=== PATIENT | female | born 1960 | race Caucasian/White ===

== ENCOUNTER 2017-10-01 06:46 | Outpatient (CLI) | payer OTHER ==
[~2017-10-01 06:46] MED LIST: CALC-793 PO; CALC600T12 PO; CYAN-19 PO; ESTR1VAG VG; IODI150T PO; MAGN400C PO; METHYLFOLATE PO; NITR100C6 PO; PYRI50TA10 PO; SYN0.075T PO; [UNRECOGNIZED DRUG - OTHER] PO
[2017-10-01 07:16] LABS: BASOPHILS % (AUTO) 0.4 % (0-1); EOSINOPHILS # (AUTO) 0.1 X10'3 (0-0.9); EOSINOPHILS % (AUTO) 1.7 % (0-6); HEMOGLOBIN 14.4 g/dl (12.0-16.0); LYMPHOCYTES # (AUTO) 2.2 X10'3 (1.1-4.8); LYMPHOCYTES % (AUTO) 28.9 % (21-51); MEAN CORPUSCULAR HEMOGLOBIN 30.4 PG (27.0-31.0); MEAN CORPUSCULAR HGB CONC 35.1 % (33.0-36.5); MEAN CORPUSCULAR VOLUME 86.6 FL (78-98); MEAN PLATELET VOLUME 7.7 FL (7.4-10.4); MONOCYTES # (AUTO) 0.4 X10'3 (0-0.9); MONOCYTES % (AUTO) 4.9 % (2-12); NEUTROPHILS # (AUTO) 4.9 X10'3 (1.8-7.7); NEUTROPHILS % (AUTO) 64.1 % (42-75); PLATELET COUNT 269 X10'3 (140-440); RED BLOOD COUNT 4.74 X10'6 (4.20-5.60); RED CELL DISTRIBUTION WIDTH 13.3 % (11.5-14.5); WHITE BLOOD COUNT 7.7 X10'3 (4.5-11.0)
[2017-10-01 07:39] LABS: ALANINE AMINOTRANSFERASE 28 U/L (12-78); ALBUMIN 4.1 G/DL (3.4-5.0); ALBUMIN/GLOBULIN RATIO 1.2 (1.1-1.5); ALKALINE PHOSPHATASE 69 IU/L (46-116); ANION GAP 9 (8-16); ASPARTATE AMINO TRANSFERASE 14 U/L (10-37); BILIRUBIN,TOTAL 0.4 MG/DL (0.1-1.0); BLOOD UREA NITROGEN 21 MG/DL (7-18); BUN/CREATININE RATIO 22.3 (6.6-38.0); CALCIUM 9.5 MG/DL (8.5-10.1); CHLORIDE 103 MMOL/L (99-107); CHOL/HDL RATIO 2.7 (0.00-4.99); CHOLESTEROL 241 MG/DL (0-200); CREATININE 0.94 MG/DL (0.40-0.90); GLUCOSE 95 MG/DL (70-104); HDL CHOLESTEROL 88 MG/DL (35-60); LDL CHOLESTEROL 130 MG/DL (50-100); POTASSIUM 4.3 MMOL/L (3.5-5.1); SODIUM 141 MMOL/L (135-145); TOTAL CARBON DIOXIDE 28.7 MMOL/L (24-32); TOTAL PROTEIN 7.6 G/DL (6.4-8.2); TRIGLYCERIDES 39 MG/DL (20-135); eGFR 61 ML/MIN
== END 2017-10-01 23:59 | disposition home or self-care (01) ==
LOC: LAB 06:46
PROVIDERS: ATTEND Nurse Practitioner Family
DX: Z00.01 Encounter for general adult medical examination with abnormal findings (principal); Z13.220 Encounter for screening for lipoid disorders; K80.50 Calculus of bile duct without cholangitis or cholecystitis without obstruction; M25.50 Pain in unspecified joint; N39.0 Urinary tract infection, site not specified
CPT/HCPCS: 36415; 80053; 80061; 84443; 85025

== ENCOUNTER 2017-12-31 11:24 | Outpatient (CLI) | payer OTHER | END 2017-12-31 23:59 | disposition home or self-care (01) | LOC: LAB 11:24 | PROVIDERS: ATTEND Otolaryngology | DX: Z13.228 Encounter for screening for other metabolic disorders (principal); Z00.00 Encounter for general adult medical examination without abnormal findings | CPT/HCPCS: 36415 ==

== ENCOUNTER 2018-02-16 06:27 | Day surgery (SDC) | payer OTHER ==
[2018-02-11 13:02] LABS: BASOPHILS # (AUTO) 0.1 X10'3 (0-0.2); BASOPHILS % (AUTO) 1.2 % (0-1); EOSINOPHILS # (AUTO) 0.1 X10'3 (0-0.9); EOSINOPHILS % (AUTO) 1.6 % (0-6); LYMPHOCYTES # (AUTO) 2.8 X10'3 (1.1-4.8); LYMPHOCYTES % (AUTO) 30.5 % (21-51); MEAN CORPUSCULAR HEMOGLOBIN 30.1 PG (27.0-31.0); MEAN CORPUSCULAR HGB CONC 34.3 % (33.0-36.5); MEAN CORPUSCULAR VOLUME 87.7 FL (78-98); MEAN PLATELET VOLUME 8.6 FL (7.4-10.4); MONOCYTES # (AUTO) 0.6 X10'3 (0-0.9); MONOCYTES % (AUTO) 6.7 % (2-12); NEUTROPHILS # (AUTO) 5.5 X10'3 (1.8-7.7); PRE OP HEMOGLOBIN 13.4 g/dL (12.0-16.0); PRE OP PLATELET COUNT 258 X10'3 (140-440); RED BLOOD COUNT 4.45 X10'6 (4.20-5.60)
[2018-02-11 13:16] LABS: ALBUMIN/GLOBULIN RATIO 1.2 (1.1-1.5); ALKALINE PHOSPHATASE 79 IU/L (46-116); BLOOD UREA NITROGEN 22 MG/DL (7-18); BUN/CREATININE RATIO 27.8 (6.6-38.0); CALCIUM 9.2 MG/DL (8.5-10.1); CHLORIDE 101 MMOL/L (99-107); CREATININE 0.79 MG/DL (0.40-0.90); PRE OP ALT 19 U/L (30-65); PRE OP ANION GAP 8 (8-16); PRE OP AST 14 U/L (10-37); PRE OP BILIRUB, TOTAL 0.3 MG/DL (0.0-1.0); PRE OP GLUCOSE 98 MG/DL (70-104); PRE OP POTASSIUM 3.8 MMOL/L (3.4-5.1); PRE OP SODIUM 138 MMOL/L (135-145); TOTAL CARBON DIOXIDE 29.1 MMOL/L (24-32); TOTAL PROTEIN 7.3 G/DL (6.4-8.2); eGFR 75 ML/MIN
[~2018-02-16] VITALS: Ht 160 cm; Wt 65.6 kg
[2018-02-16] VITALS (13 sets, daily range): BP systolic 113–159; BP diastolic 63–102
[~2018-02-16 06:27] MED LIST changes: -CALC-793 PO; +CHOL2000 PO; -IODI150T PO; +LEVO125T PO; +LIDOcaine 1% (10mg/ml) 2ml vial ONE; -MAGN400C PO; -PYRI50TA10 PO; -SYN0.075T PO; +[UNRECOGNIZED DRUG - CODE] PO; +ceFOXitin 2 GM ADDvantage bag 100 ML IV ONE; +famotidine 20mg tablet PO ONE; +ringers solution, lacted 1,000 ML IV SCH
[2018-02-16] MEDS ORDERED: BUPIVAcaine/PF 2.5mg/ml (0.25%) 10ml vial ONE (07:14)
[2018-02-16] MEDS ORDERED: LIDOcaine 2% (20mg/ml) 5ml vial ONE (08:12)
[2018-02-16] MEDS ORDERED: fentaNYL/PF 50MCG/1 ML 2ML syringe ONE ×2 (08:12→08:56)
[2018-02-16] MEDS ORDERED: propofol inj 20 ML IV ONE (08:12)
[2018-02-16] MEDS ORDERED: midazolam 2 mg/2 ml injection ONE (08:12)
[2018-02-16] MEDS ORDERED: rocuronium 10mg/ml inj IV ONE (08:12)
[2018-02-16] MEDS ORDERED: ringers solution, lacted 1,000 ML IV SCH (08:38)
[2018-02-16] MEDS ORDERED: meperidine/PF 25mg/ml syringe IV PRN ×2 (08:40)
[2018-02-16] MEDS ORDERED: proCHLORperazine 10 MG/2 ml inj IV PRN (08:40)
[2018-02-16] MEDS ORDERED: ondansetron/PF 4mg/2ml inj IV PRN (08:40)
[2018-02-16] MEDS ORDERED: morphine 4 MG/ML inj SYRINge IV PRN ×2 (08:40)
[2018-02-16] MEDS ORDERED: dexamethasone sod phosphate 4mg/ml inj. ONE (08:45)
[2018-02-16] MEDS ORDERED: neostigmine methylsulfate 1 MG/ML 10ml vial ONE (08:57)
[2018-02-16] MEDS ORDERED: ondansetron/PF 4mg/2ml inj ONE (08:57)
[2018-02-16] MEDS ORDERED: glycopyrrolate 0.2mg/ml inj ONE (08:57)
[2018-02-16] MEDS ORDERED: ketorolac trometh. 30mg/ml inj. IV ONE (09:35)
[2018-02-16] MEDS: meperidine/PF 25mg/ml syringe IV PRN ×2 (09:39→09:44)
== END 2018-02-16 11:20 | disposition home or self-care (01) ==
LOC: PAS 06:27
PROVIDERS: ATTEND Surgery
DX: K80.10 Calculus of gallbladder with chronic cholecystitis without obstruction (principal); E03.9 Hypothyroidism, unspecified; M79.7 Fibromyalgia; F32.9 Major depressive disorder, single episode, unspecified; G89.29 Other chronic pain; M47.812 Spondylosis without myelopathy or radiculopathy, cervical region; Z98.82 Breast implant status; Z72.89 Other problems related to lifestyle; Z98.51 Tubal ligation status; Z88.2 Allergy status to sulfonamides; Z79.82 Long term (current) use of aspirin; Z86.69 Personal history of other diseases of the nervous system and sense organs; Z87.440 Personal history of urinary (tract) infections; Z79.899 Other long term (current) drug therapy; Z98.890 Other specified postprocedural states; Z83.3 Family history of diabetes mellitus; Z84.1 Family history of disorders of kidney and ureter; Z82.0 Family history of epilepsy and other diseases of the nervous system
CPT/HCPCS: 36415; 47562; 80053; 85025; 93005; J0694; J1100; J1885; J2001; J2175; J2250; J2405; J2704; J2710; J3010; J3490; J7120; A7000

== ENCOUNTER 2018-11-18 08:15 | Outpatient (CLI) | payer OTHER ==
[~2018-11-18 08:15] MED LIST changes: -LIDOcaine 1% (10mg/ml) 2ml vial ONE; -ceFOXitin 2 GM ADDvantage bag 100 ML IV ONE; -famotidine 20mg tablet PO ONE; -ringers solution, lacted 1,000 ML IV SCH
== END 2018-11-18 23:59 | disposition home or self-care (01) ==
LOC: VAS 08:15
PROVIDERS: ATTEND Radiology Diagnostic Radiology
DX: Z09 Encounter for follow-up examination after completed treatment for conditions other than malignant neoplasm (principal)
CPT/HCPCS: 93971

== ENCOUNTER 2018-11-18 08:21 | Outpatient (CLI) | payer OTHER ==
[2018-11-19 08:12] LABS: THYROXINE (T4) 7.3 ug/dL (4.5-12.0)
== END 2018-11-18 23:59 | disposition home or self-care (01) ==
LOC: LAB 08:21
PROVIDERS: ATTEND Otolaryngology
DX: E04.1 Nontoxic single thyroid nodule (principal)
CPT/HCPCS: 36415; 84436; 84443; 84479

== ENCOUNTER 2019-02-24 12:43 | Outpatient (CLI) | payer OTHER ==
[~2019-02-24 12:43] MED LIST changes: -CYAN-19 PO; +CYAN100019 PO
== END 2019-02-24 23:59 | disposition home or self-care (01) ==
LOC: RAD 12:43
PROVIDERS: ATTEND Family Medicine
DX: E04.2 Nontoxic multinodular goiter (principal); Z86.69 Personal history of other diseases of the nervous system and sense organs; Z72.89 Other problems related to lifestyle
CPT/HCPCS: 76536

== ENCOUNTER 2019-09-11 07:36 | Outpatient (CLI) | payer OTHER ==
[2019-09-11 09:06] LABS: BASOPHILS % (AUTO) 0.5 % (0-1); EOSINOPHILS # (AUTO) 0.1 X10'3 (0-0.9); EOSINOPHILS % (AUTO) 0.8 % (0-6); HEMOGLOBIN 13.8 g/dl (12.0-16.0); LYMPHOCYTES # (AUTO) 2.4 X10'3 (1.1-4.8); LYMPHOCYTES % (AUTO) 32.9 % (21-51); MEAN CORPUSCULAR HEMOGLOBIN 29.7 PG (27.0-31.0); MEAN CORPUSCULAR HGB CONC 34.5 g/dL (33.0-36.5); MEAN CORPUSCULAR VOLUME 85.9 FL (78-98); MEAN PLATELET VOLUME 8.3 FL (7.4-10.4); MONOCYTES # (AUTO) 0.5 X10'3 (0-0.9); MONOCYTES % (AUTO) 6.1 % (2-12); NEUTROPHILS # (AUTO) 4.4 X10'3 (1.8-7.7); NEUTROPHILS % (AUTO) 59.7 % (42-75); PLATELET COUNT 263 X10'3 (140-440); RED BLOOD COUNT 4.65 X10'6 (4.20-5.60); RED CELL DISTRIBUTION WIDTH 13.1 % (11.5-14.5); WHITE BLOOD COUNT 7.4 X10'3 (4.5-11.0)
[2019-09-11 09:29] LABS: ALANINE AMINOTRANSFERASE 18 U/L (12-78); ALBUMIN 4.1 G/DL (3.4-5.0); ALBUMIN/GLOBULIN RATIO 1.2 (1.1-1.5); ALKALINE PHOSPHATASE 69 IU/L (46-116); ANION GAP 6 (8-16); ASPARTATE AMINO TRANSFERASE 19 U/L (10-37); BILIRUBIN,TOTAL 0.5 MG/DL (0.1-1.0); BLOOD UREA NITROGEN 15 MG/DL (7-18); BUN/CREATININE RATIO 17.6 (6.6-38.0); CALCIUM 9.3 MG/DL (8.5-10.1); CHLORIDE 101 MMOL/L (99-107); CHOL/HDL RATIO 3.1 (0.00-4.99); CHOLESTEROL 184 MG/DL (0-200); CREATININE 0.85 MG/DL (0.40-0.90); GLUCOSE 92 MG/DL (70-104); HDL CHOLESTEROL 59 MG/DL (35-60); LDL CHOLESTEROL 110 MG/DL (50-100); POTASSIUM 3.9 MMOL/L (3.5-5.1); SODIUM 135 MMOL/L (135-145); TOTAL CARBON DIOXIDE 27.7 MMOL/L (24-32); TOTAL PROTEIN 7.4 G/DL (6.4-8.2); TRIGLYCERIDES 56 MG/DL (20-135); eGFR 68 ML/MIN
[2019-09-11 09:31] LABS: C-REACTIVE PROTEIN < 0.05 MG/DL (0.0-0.5)
[2019-09-11 09:44] LABS: RHEUM FACTOR QUAL REFLEX TITER NEGATIVE (Neg)
[2019-09-12 06:09] LABS: VITAMIN D, 25-HYDROXY 40.2 ng/mL (30.0-100.0)
[2019-09-12 08:11] LABS: SEX HORM BINDING GLOB, SERUM 83.1 nmol/L (17.3-125.0)
== END 2019-09-11 23:59 | disposition home or self-care (01) ==
LOC: LAB 07:36
PROVIDERS: ATTEND Family Medicine
DX: E03.9 Hypothyroidism, unspecified (principal); E04.1 Nontoxic single thyroid nodule; E55.9 Vitamin D deficiency, unspecified; G89.4 Chronic pain syndrome; M05.9 Rheumatoid arthritis with rheumatoid factor, unspecified; M25.473 Effusion, unspecified ankle
CPT/HCPCS: 36415; 80053; 80061; 82306; 82607; 82746; 83880; 84270; 84439; 84443; 84482; 85025; 85651; 86140; 86430

== ENCOUNTER 2019-12-28 08:04 | Outpatient (CLI) | payer BC ==
[~2019-12-28 08:04] MED LIST changes: -CALC600T12 PO; +CALC600T16 PO
== END 2019-12-28 23:59 | disposition home or self-care (01) ==
LOC: LAB 08:04
PROVIDERS: ATTEND Family Medicine
DX: G89.4 Chronic pain syndrome (principal); M25.571 Pain in right ankle and joints of right foot
CPT/HCPCS: 36415; 83520; 83735; 84255; 84630; 86617

== ENCOUNTER 2020-10-17 15:09 | Outpatient (CLI) | payer BC ==
[~2020-10-17 15:09] MED LIST changes: +CALC-1099 PO; -CALC600T16 PO
== END 2020-10-17 23:59 | disposition home or self-care (01) ==
LOC: RAD 15:09
PROVIDERS: ATTEND Family Medicine
DX: R93.89 Abnormal findings on diagnostic imaging of other specified body structures (principal)
CPT/HCPCS: 76536

== ENCOUNTER 2020-12-09 15:25 | Outpatient (CLI) | payer BC | END 2020-12-09 23:59 | disposition home or self-care (01) | LOC: RAD 15:25 | PROVIDERS: ATTEND Family Medicine | DX: M47.816 Spondylosis without myelopathy or radiculopathy, lumbar region (principal); M48.061 Spinal stenosis, lumbar region without neurogenic claudication | CPT/HCPCS: 72148 ==

== ENCOUNTER 2020-12-19 06:40 | Day surgery (SDC) | payer BC ==
[~2020-12-19] VITALS: Ht 160 cm; Wt 53.9 kg
[2020-12-19] VITALS (8 sets, daily range): BP systolic 114–143; BP diastolic 68–83
[2020-12-19] MEDS ORDERED: LORA10CA PO (07:17)
[2020-12-19] MEDS ORDERED: IBUP-24 PO (07:20)
== END 2020-12-19 10:20 | disposition home or self-care (01) ==
LOC: SSTAY O 06:40
PROVIDERS: ATTEND Radiology Vascular & Interventional Radiology
DX: E04.1 Nontoxic single thyroid nodule (principal); E03.9 Hypothyroidism, unspecified; E55.9 Vitamin D deficiency, unspecified; M12.9 Arthropathy, unspecified; Z88.2 Allergy status to sulfonamides; Z79.899 Other long term (current) drug therapy
CPT/HCPCS: 10005; 38505

== ENCOUNTER 2021-02-21 06:44 | Day surgery (SDC) | payer BC ==
[~2021-02-21] VITALS: Ht 160 cm; Wt 53.9 kg
[~2021-02-21 06:44] MED LIST changes: +IBUP-24 PO; +LORA10CA PO; -NITR100C6 PO; -[UNRECOGNIZED DRUG - CODE] PO
[2021-02-21] MEDS ORDERED: normal saline 1000ml 1,000 ML IV PRN (07:00)
[2021-02-21 07:39] VITALS: BP 125/68
[2021-02-21] MEDS ORDERED: normal saline 1000ml 1,000 ML IV SCH (09:20)
[2021-02-21 09:25] VITALS: BP 109/64
== END 2021-02-21 10:00 | disposition home or self-care (01) ==
LOC: SSTAY O 06:44
PROVIDERS: ATTEND Radiology Diagnostic Radiology
DX: E04.1 Nontoxic single thyroid nodule (principal); Z53.8 Procedure and treatment not carried out for other reasons; E03.9 Hypothyroidism, unspecified; E55.9 Vitamin D deficiency, unspecified; M12.9 Arthropathy, unspecified; Z88.2 Allergy status to sulfonamides; Z79.899 Other long term (current) drug therapy
CPT/HCPCS: 76536

== ENCOUNTER 2021-03-10 08:49 | Outpatient (CLI) | payer BC | END 2021-03-10 23:59 | disposition home or self-care (01) | LOC: RAD 08:49 | PROVIDERS: ATTEND Family Medicine | DX: E04.2 Nontoxic multinodular goiter (principal) | CPT/HCPCS: 76536 ==

== ENCOUNTER 2021-06-19 12:58 | Emergency (ER) | payer BC ==
[~2021-06-19] VITALS: Ht 160 cm; Wt 46.4 kg
[2021-06-19 13:13] VITALS: BP 126/66
== END 2021-06-19 17:46 | disposition left against medical advice (07) ==
LOC: ER 12:59
DX: R11.10 Vomiting, unspecified (principal); Z53.21 Procedure and treatment not carried out due to patient leaving prior to being seen by health care provider

== ENCOUNTER 2022-03-11 09:00 | Outpatient (CLI) | payer BC ==
[2022-03-11 10:01] LABS: BASOPHILS % (AUTO) 0.4 % (0-1); EOSINOPHILS # (AUTO) 0.1 X10'3 (0-0.9); HEMATOCRIT 39.7 % (35.0-45.0); HEMOGLOBIN 13.6 g/dl (12.0-16.0); LYMPHOCYTES # (AUTO) 2.1 X10'3 (1.1-4.8); LYMPHOCYTES % (AUTO) 30.3 % (21-51); MEAN CORPUSCULAR HEMOGLOBIN 29.9 PG (27.0-31.0); MEAN CORPUSCULAR HGB CONC 34.2 g/dL (33.0-36.5); MEAN CORPUSCULAR VOLUME 87.3 FL (78-98); MEAN PLATELET VOLUME 8.1 FL (7.4-10.4); MONOCYTES # (AUTO) 0.5 X10'3 (0-0.9); MONOCYTES % (AUTO) 7.1 % (2-12); NEUTROPHILS # (AUTO) 4.3 X10'3 (1.8-7.7); NEUTROPHILS % (AUTO) 61.2 % (42-75); PLATELET COUNT 264 X10'3 (140-440); RED BLOOD COUNT 4.54 X10'6 (4.20-5.60); RED CELL DISTRIBUTION WIDTH 13.1 % (11.5-14.5)
[2022-03-11 10:22] LABS: ALANINE AMINOTRANSFERASE 25 U/L (12-78); ALBUMIN 4.2 G/DL (3.4-5.0); ALBUMIN/GLOBULIN RATIO 1.2 (1.1-1.5); ALKALINE PHOSPHATASE 69 IU/L (46-116); ANION GAP 7 (8-16); ASPARTATE AMINO TRANSFERASE 33 U/L (10-37); BILIRUBIN,TOTAL 0.5 MG/DL (0.1-1.0); BLOOD UREA NITROGEN 16 MG/DL (7-18); BUN/CREATININE RATIO 21.3 (6.6-38.0); CALCIUM 9.6 MG/DL (8.5-10.1); CHLORIDE 100 MMOL/L (99-107); CHOL/HDL RATIO 3.1 (0.00-4.99); CHOLESTEROL 251 MG/DL (0-200); CREATININE 0.75 MG/DL (0.40-0.90); GLUCOSE 86 MG/DL (70-104); HDL CHOLESTEROL 82 MG/DL (35-60); LDL CHOLESTEROL 140 MG/DL (50-100); SODIUM 135 MMOL/L (135-145); TOTAL CARBON DIOXIDE 27.6 MMOL/L (24-32); TOTAL PROTEIN 7.6 G/DL (6.4-8.2); TRIGLYCERIDES 60 MG/DL (20-135); eGFR 79 ML/MIN
[2022-03-12 09:36] LABS: ESTRADIOL <5.0 pg/mL (.); FSH, SERUM 81.9 mIU/mL (.); LUTEINIZING HORMONE 43.5 mIU/mL (.); PROGESTERONE 0.1 ng/mL (.)
== END 2022-03-11 23:59 | disposition home or self-care (01) ==
LOC: LAB 09:00
PROVIDERS: ATTEND Family Medicine
DX: Z01.419 Encounter for gynecological examination (general) (routine) without abnormal findings (principal); E03.9 Hypothyroidism, unspecified; E55.9 Vitamin D deficiency, unspecified; R53.83 Other fatigue; R68.82 Decreased libido
CPT/HCPCS: 36415; 80053; 80061; 82306; 82607; 82670; 82679; 82746; 83001; 83002; 84144; 84402; 84403; 84439; 84443; 85025

== ENCOUNTER 2022-12-03 15:53 | Outpatient (CLI) | payer BC | END 2022-12-03 23:59 | disposition home or self-care (01) | LOC: RAD 15:53 | PROVIDERS: ATTEND Chiropractor | DX: M99.01 Segmental and somatic dysfunction of cervical region (principal); M54.2 Cervicalgia | CPT/HCPCS: 72050 ==

== ENCOUNTER 2024-01-27 08:46 | Outpatient (CLI) | payer BC ==
[~2024-01-27 08:46] MED LIST changes: -ESTR1VAG VG; +ESTR1VAG10 VG
[2024-01-27 09:56] LABS: FREE T4 (FREE THYROXINE) 1.21 NG/DL (0.73-1.40); THYROID STIMULATING HORMONE 0.04 ulU/ml (0.34-4.50)
== END 2024-01-27 23:59 | disposition home or self-care (01) ==
LOC: LAB 08:46
PROVIDERS: ATTEND Family Medicine
DX: E03.9 Hypothyroidism, unspecified (principal)
CPT/HCPCS: 36415; 84439; 84443; 84480; 86376; 86800

== ENCOUNTER 2024-04-05 09:43 | Outpatient (CLI) | payer BC | END 2024-04-05 23:59 | disposition home or self-care (01) | LOC: RAD 09:43 | PROVIDERS: ATTEND Family Medicine | DX: E03.9 Hypothyroidism, unspecified (principal); G62.9 Polyneuropathy, unspecified | CPT/HCPCS: 78014; A9516 ==

== ENCOUNTER 2024-07-20 09:09 | Outpatient (CLI) | payer BC ==
[2024-07-20 09:36] LABS: BASOPHILS % (AUTO) 0.4 % (0-1); EOSINOPHILS # (AUTO) 0.1 X10'3 (0-0.9); EOSINOPHILS % (AUTO) 0.7 % (0-6); HEMATOCRIT 38.7 % (35.0-45.0); HEMOGLOBIN 13.4 g/dl (12.0-16.0); LYMPHOCYTES # (AUTO) 2.7 X10'3 (1.1-4.8); LYMPHOCYTES % (AUTO) 32.1 % (21-51); MEAN CORPUSCULAR HEMOGLOBIN 30.6 PG (27.0-31.0); MEAN CORPUSCULAR HGB CONC 34.6 g/dL (33.0-36.5); MEAN CORPUSCULAR VOLUME 88.5 FL (78-98); MONOCYTES # (AUTO) 0.7 X10'3 (0-0.9); MONOCYTES % (AUTO) 7.9 % (2-12); NEUTROPHILS # (AUTO) 4.9 X10'3 (1.8-7.7); NEUTROPHILS % (AUTO) 58.9 % (42-75); PLATELET COUNT 281 X10'3 (140-440); RED BLOOD COUNT 4.37 X10'6 (4.20-5.60); RED CELL DISTRIBUTION WIDTH 13.1 % (11.5-14.5); WHITE BLOOD COUNT 8.3 X10'3 (4.5-11.0)
[2024-07-20 09:48] LABS: ALANINE AMINOTRANSFERASE 22 U/L (12-78); ALBUMIN 4.1 G/DL (3.4-5.0); ALBUMIN/GLOBULIN RATIO 1.2 (1.1-1.5); ALKALINE PHOSPHATASE 69 IU/L (46-116); ANION GAP 5 (8-16); ASPARTATE AMINO TRANSFERASE 14 U/L (10-37); BILIRUBIN,TOTAL 0.4 MG/DL (0.1-1.0); BLOOD UREA NITROGEN 21 MG/DL (7-18); BUN/CREATININE RATIO 26.6 (10.0-20.0); CHLORIDE 105 MMOL/L (99-107); CREATININE 0.79 MG/DL (0.40-0.90); GLUCOSE 99 MG/DL (70-104); POTASSIUM 4.4 MMOL/L (3.5-5.1); SODIUM 138 MMOL/L (135-145); TOTAL CARBON DIOXIDE 28.1 MMOL/L (24-32); TOTAL PROTEIN 7.4 G/DL (6.4-8.2); eGFR 73 ML/MIN
[2024-07-20 10:12] LABS: FREE T4 (FREE THYROXINE) 1.11 NG/DL (0.73-1.40); THYROID STIMULATING HORMONE 0.04 ulU/ml (0.34-4.50)
[2024-07-21 11:13] LABS: FOLATE SERUM(FOLIC) >20.0 ng/mL (>3.0); THYROID PEROXIDASE AB 73 IU/mL (0-34); TRIIODOTHYRONINE (T3) 148 ng/dL (71-180); VITAMIN D, 25-HYDROXY 58.8 ng/mL (30.0-100.0)
== END 2024-07-20 23:59 | disposition home or self-care (01) ==
LOC: LAB 09:09
PROVIDERS: ATTEND Physician Assistant Medical
DX: E03.9 Hypothyroidism, unspecified (principal); E55.9 Vitamin D deficiency, unspecified
CPT/HCPCS: 36415; 80053; 82306; 82607; 82746; 84439; 84443; 84480; 85025; 86376

== ENCOUNTER 2024-08-10 12:44 | Outpatient (CLI) | payer BC | END 2024-08-10 23:59 | disposition home or self-care (01) | LOC: RAD 12:44 | PROVIDERS: ATTEND Physician Assistant Medical | DX: E04.1 Nontoxic single thyroid nodule (principal); E06.3 Autoimmune thyroiditis; E03.4 Atrophy of thyroid (acquired) | CPT/HCPCS: 76536 ==